=== PATIENT | male | born 1930 | race Caucasian/White ===

== ENCOUNTER 2019-05-10 14:51 | Emergency (ER) | payer MEDICARE ==
[~2019-05-10] VITALS: Ht 170.2 cm; Wt 67.1 kg
--- NOTE | 2019-05-10 15:15 | NUR ---
PT AAOX4. AMBULATORY [id number] FOR RECTAL PAIN & RASH ALL OVER BODY. UPON ASSESSMENT PT STATED HE CAN NOT CONTROL HIMSELF AND KEEPS POOPING. PT ALSO STATED HE HAS HIP PAIN 02/22 WHICH THE RA STATED STARTED WHILE ON GORNEY. PLACED ON MONIOR AND PULSE OX. AWAITING MD FOR EVAL.
--- NOTE | 2019-05-10 16:05 | NUR ---
ADULT BASIC STUDIES TEACHER AT BEDSIDE
[2019-05-10 16:07] LABS: BASOPHILS # (AUTO) 0.1 /CMM (0.0-0.2); BASOPHILS % (AUTO) 0.6 % (0.0-2.0); EOSINOPHILS % (AUTO) 8.7 % (0.0-6.0); HEMATOCRIT 32 % (39-51); HEMOGLOBIN 10.7 g/dL (13.5-17.5); LYMPHOCYTES # (AUTO) 1.1 /CMM (0.8-4.8); LYMPHOCYTES % (AUTO) 10.4 % (20.0-44.0); MEAN CORPUSCULAR HGB CONC 34 g/dl (31.0-36.0); MEAN CORPUSCULAR VOLUME 89 fL (80-96); MONOCYTES # (AUTO) 0.9 /CMM (0.1-1.30); MONOCYTES % (AUTO) 9.2 % (2.0-12.0); NEUTROPHILS # (AUTO) 7.2 /CMM (1.8-8.9); NEUTROPHILS % (AUTO) 71.1 % (43.0-81.0); PLATELET COUNT (AUTO) 294 /CMM (150-450); RED BLOOD CELL COUNT(AUTO) 3.57 MIL/uL (4.5-6.0); WHITE BLOOD COUNT (AUTO) 10.1 K/uL (4.3-11.0)
[2019-05-10] MEDS ORDERED: LIDOCAINE 2% JEL UROJET 10 ML MM ONE ×2 (16:11→16:30)
[2019-05-10 16:16] LABS: CALCIUM, SERUM 8.6 mg/dL (8.5-10.1); CREATININE 1.1 mg/dL (0.6-1.3); POTASSIUM 4.4 mmol/L (3.5-5.1)
--- NOTE | 2019-05-10 16:24 | NUR ---
URINE COLLECTED AND SENT TO LAB
[2019-05-10 16:27] LABS: APPEARANCE,URINE Clear (CLEAR); BILIRUBIN,URINE Negative (NEGATIVE); BLOOD, URINE Moderate Ery/uL (NEGATIVE); COLOR,URINE Yellow (YELLOW); KETONES,URINE Negative (NEGATIVE); LEUKOCYTE ESTERASE ,URINE Negative (NEGATIVE); NITRITE, URINE Negative (NEGATIVE); PH,URINE 5.5 (5.0-8.0); PROTEIN,URINE Trace mg/dl (NEGATIVE); UGLUCOSE Negative (NEGATIVE); UROBILINOGEN,URINE 0.2 EU/dL (0.2)
[2019-05-10 16:28] LABS: ALBUMIN 3.3 g/dL (3.4-5.0); BILIRUBIN,DIRECT 0.1 mg/dL (0.0-0.2); BILIRUBIN,TOTAL 0.4 mg/dL (0.2-1.0); TOTAL PROTEIN, SERUM 6.1 g/dL (6.4-8.2)
[2019-05-10] MEDS ORDERED: ACETAMINOPHEN ES 500 MG TABLET ONE (16:49)
[2019-05-10] MEDS ORDERED: ACETAMINOPHEN 325 MG TABLET PO ONE (17:00)
[2019-05-10 17:17] LABS: BACTERIA,URINE Few /HPF (None Seen); SQUAMOUS EPITHELIAL CELL,UR Few /HPF (None Seen); WBC,URINE 0-2 /HPF (0-3)
[2019-05-10 17:45] VITALS: BP 146/86
--- NOTE | 2019-05-10 17:45 | NUR ---
Patient discharged to home in stable condition. Written and verbal after care instructions given. Patient verbalizes understanding of instruction. Austin removed before pt left. pt ambulated using cane. Vss.
== END 2019-05-10 17:45 | disposition home or self-care (01) ==
LOC: EDBD 14:54 → ER 14:54
DX: K62.89 Other specified diseases of anus and rectum (principal); R19.7 Diarrhea, unspecified; M25.50 Pain in unspecified joint; I10 Essential (primary) hypertension; Z86.73 Personal history of transient ischemic attack (TIA), and cerebral infarction without residual deficits
CPT/HCPCS: 36415; 51702; 80048; 80076; 81001; 85025; 87086; 99284; J3490; 81000-TC

== ENCOUNTER 2020-05-14 03:25 | Emergency (ER) | payer MEDICARE ==
[~2020-05-14] VITALS: Ht 170.2 cm; Wt 60.8 kg
--- NOTE | 2020-05-14 03:40 | NUR ---
BIB[facility] 41 [facility], PER RA "PT WOKE UP SCREAMING" PT STATES BEEN FEELING WEAKNESS. , PT AAOX2-3, -SOB, NAD NOTED, PT VSS, WCTM
[2020-05-14 05:43] LABS: CALCIUM, SERUM 8.7 mg/dL (8.5-10.1); CARBON DIOXIDE 28 mmol/L (21-32); CHLORIDE 101 mmol/L (98-107); CREATININE 1.1 mg/dL (0.6-1.3); GLUCOSE 85 mg/dL (74-106); POTASSIUM 3.8 mmol/L (3.5-5.1); SODIUM SERUM 136 mmol/L (136-145); UREA NITROGEN, BLOOD 12 mg/dL (7-18)
--- NOTE | 2020-05-14 06:01 | NUR ---
REPORT CALLED TO [facility] STAFF REGARDING PT DISCHARGE.
--- NOTE | 2020-05-14 06:02 | NUR ---
[facility] CALLED FOR TRANSPORT, NO AVAILABLE BLS UNIT AVAILABLE AT THIS TIME.
--- NOTE | 2020-05-14 06:06 | NUR ---
[facility] CALLED FOR TRANSPORT, NO AVAILABLE BLS UNIT AVAILABLE UNTIL 11:30-NOON. DID NOT ARRANGE TRANSPORT.
--- NOTE | 2020-05-14 06:11 | NUR ---
[facility] CALLED ETA [id number].
[2020-05-14 06:21] LABS: BASOPHILS % (AUTO) 0.3 % (0.0-2.0); EOSINOPHILS % (AUTO) 12.3 % (0.0-6.0); HEMATOCRIT 37 % (39-51); HEMOGLOBIN 12.3 g/dL (13.5-17.5); LYMPHOCYTES % (AUTO) 22.7 % (20.0-44.0); MEAN CORPUSCULAR HGB CONC 34 g/dl (31.0-36.0); MEAN CORPUSCULAR VOLUME 91 fL (80-96); MONOCYTES # (AUTO) 0.7 /CMM (0.1-1.30); MONOCYTES % (AUTO) 8.2 % (2.0-12.0); NEUTROPHILS # (AUTO) 4.9 /CMM (1.8-8.9); NEUTROPHILS % (AUTO) 56.5 % (43.0-81.0); PLATELET COUNT (AUTO) 284 /CMM (150-450); RED BLOOD CELL COUNT(AUTO) 4.02 MIL/uL (4.5-6.0); WHITE BLOOD COUNT (AUTO) 8.7 K/uL (4.3-11.0)
--- NOTE | 2020-05-14 07:49 | NUR ---
Patient picked up by RA in stable condition. Written and verbal after care instructions given. Patient verbalizes understanding of instruction. Patient will be brought back to [facility]F.
[2020-05-14 08:41] VITALS: BP 128/59
== END 2020-05-14 07:49 ==
LOC: ER 03:25
DX: Z00.8 Encounter for other general examination (principal); F03.90 Unspecified dementia, unspecified severity, without behavioral disturbance, psychotic disturbance, mood disturbance, and anxiety; R07.89 Other chest pain
CPT/HCPCS: 36415; 71045-TC; 80048-TC; 84484-TC; 85025-TC